=== PATIENT | male | born 1945 | race African-American/Black ===

== ENCOUNTER 2016-10-28 17:42 | Emergency (ER) | payer MEDICARE ==
[~2016-10-28] VITALS: Ht 167.6 cm; Wt 66.0 kg
[2016-10-28] MEDS ORDERED: ACETAMINOPHEN 325 MG TABLET PO ONE (18:30)
[2016-10-28 19:58] VITALS: BP 137/86
== END 2016-10-28 20:01 | disposition home or self-care (01) ==
LOC: EMS 17:46
DX: M25.551 Pain in right hip (principal); J45.909 Unspecified asthma, uncomplicated; F17.210 Nicotine dependence, cigarettes, uncomplicated
CPT/HCPCS: 73502; 99284